=== PATIENT | male | born 1975 | race Caucasian/White ===

== ENCOUNTER → 2022-03-19 16:18 | Outpatient (BNVA) | payer MEDICARE, MEDICAID, SELFPAY | PROVIDERS: Family Provider Family Medicine; Visit Provider Registered Nurse Neonatal Intensive Care | DX: S49.91XA Unspecified injury of right shoulder and upper arm, initial encounter (principal); X58.XXXA Exposure to other specified factors, initial encounter | CPT/HCPCS: 73030 ==

== ENCOUNTER 2023-02-20 13:49 | Emergency (ER) | payer MEDICARE, MEDICAID, SELFPAY ==
[2023-02-20 14:07] VITALS: BP 143/90; PULSE 80; TEMP 36.8; O2SAT 95; BMI 41.5
[2023-02-20] MEDS: tetanus-dipt-pertussis 0.5 mL SDV IM (15:41)
--- NOTE | 2023-02-20 18:33 | ED_ITS ---
HPI - Extremity Problem General: Chief complaint: Extremity Problem,Nontraumatic Stated complaint: Right hand/finger swelling, deep splinter Time Seen by Provider: 02/20/23 14:13 Source: patient Mode of arrival: ambulatory Limitations: no limitations History of Present Illness: Patient presents to the emergency department today for evaluation treatment of a splinter underneath his right index finger nail. Patient states that just prior to arrival he was working outside and a splinter went underneath his right index finger nail. Patient states he tried to use toenail clippers to trim back the nail and pulled the splinter out however, he was unable to retrieve it. Patient states his last tetanus immunization was in 2011. Review of Systems General: Reports: 10 or more systems reviewed and unremarkable except in HPI and below Physical Exam Const: COMMON NORMALS: no acute distress, patient oriented x3 and alert HENMT: COMMON NORMALS: normocephalic, atraumatic and hearing grossly normal bilaterally HEAD & SCALP: normocephalic and atraumatic Eye: COMMON NORMALS: Equal, round and reactive pupils present, EOMs intact bilaterally and conjunctivae normal CONJUNCTIVA: Yes conjunctivae normal PUPIL: Yes Equal, round and reactive pupils present Neck/C-Spine: COMMON NORMALS: full ROM and no JVD Lymph: LYMPHATIC: no lymphadenopathy noted Resp: COMMON NORMALS: normal respiratory effort, No retractions and No use of accessory muscles Cardio: COMMON NORMALS: no JVD and regular rate RATE: regular rate Extremity: NARRATIVE EXTREMITY EXAM: Patient has an obvious foreign body under the right index finger nail. Patient has a dark linear object starting approximately mid nail and extending back towards the nail matrix. There is minimal erythema and, patient has the distal lateral corner of the fingernail trimmed back. No active bleeding. Patient still has preserved mobility of the joints in that finger. Neuro: COMMON NORMALS: patient oriented x3 SENSORIUM/ORIENTATION: Yes alert Psych: COMMON NORMALS: mental status grossly normal, Normal thought process present, cooperative and normal affect THOUGHT PROCESS: Normal thought proce ss present Skin: COMMON NORMALS: no rashes or lesions noted and turgor normal GENERAL SKIN EXAM: no rashes or lesions noted and turgor normal Procedures Foreign Body Removal Time Out Performed: no (Patient confirmed by patient demographics) Site: right and hand (Index finger) Description of foreign body: other (Splinter) Sedation/Analgesia: none (Patient was driving himself) Technique: manual removal and irrigation Confirmed by:: direct visualization Complications: none Post-procedure exam: awake, alert Neurovascular: no change from pre-procedure Course Vital Signs: Vital signs: Vital Signs Temperature 98.2 F 02/20/23 14:07 Pulse Rate 80 02/20/23 14:07 Blood Pressure 143/90 02/20/23 14:07 Pulse Oximetry 95 02/20/23 14:07 Oxygen Delivery Me thod Room Air 02/20/23 14:07 MDM - Extremity (Nontraumatic) Medical Decision Making Patient's tetanus immunization was updated today. Patient tolerated numbing underneath his fingernail and also tolerated some mild trimming back of the nail. Foreign body was able to be grasped and retracted intact. Patient tolerated irrigation and cleaning with Betadine and bandaging here in the ER. Explained to him that organic material is very porous and hold quite a bit of bacteria so, will put him on a prophylactic course of antibiotics. Patient was given strict return precautions for any acute concerns for development of infection. Patient is still at a great risk of infection given the location of the wound and somewhat difficulty to irrigate here in the ER. Patient was given wound care instructions and banding care instructions for at home but, should be seen and reevaluated for concerns of developing cellulitis. More specifically regarding the patient's procedure, patient received 1% lidocaine without epinephrine injected at the lateral portion of the nail matrix. Patient then tolerated insertion of the needle along the distal lateral portion of the right index finger nail and, was able to inject approximately 2 cc of lidocaine. Good anesthesia was achieved and nail was trimmed back, loosened with an 18-gauge needle from the nailbed and trimmed back with suture scissors. The end of the splinter was visualized and was able to be grasped using hemostats. I am appears to be intact upon removal. Total of approximately 1 cm in length. Minimal bleeding. Patient's wound was then cleaned with Betadine and sterile saline. It was bandaged using nonstick Telfa and Coban wrap. Patient tolerated procedure without any difficulty. Differential Diagnosis Likely cellulitis (Retained foreign body, need for tetanus immunization) Discharge Plan Discharge Patient Disposition: Home Clinical Impression: Foreign body of finger of right hand Condition: Stable Prescriptions: New cephalexin 500 mg capsule 500 mg PO Q6H 7 Days Qty: 28 0RF No Action budesonide-formoterol [Symbicort] 160-4.5 mcg/actuation HFA aerosol inhaler 2 inh inhalation BID albuterol sulfate [Ventolin HFA] 90 mcg/actuation HFA aerosol inhaler 2 puff inhalation QID PRN (Reason: Shortness Of Breath) ibuprofen 800 mg tablet 800 mg PO Q8H PRN (Reason: Pain) tramadol 50 mg tablet 50 mg PO .EVERY 4-6 HOURS MDD 3 tabs PRN (Reason: Pain) baclofen 20 mg tablet 20 mg PO Q8H PRN (Reason: Muscle Spasm) gabapentin 800 mg tablet 800 mg PO Q8H Discharge Orders: Discharge ED (Routine); Ordered 02/20/23 Ordered By: Malorie Aparicio Referrals: Aleksander Mendoza MD [Primary Care Provider] - Discharge Diet: Usual diet Discharge Activity: Increase activity as tolerated Patient Instructions: Soft Tissue Foreign Body (ED) Activity Restrictions/Additional Instructions: We recommend washing your wound at least twice a day with warm water and a mild soap. We also recommend keeping it covered with clean bandaging to prevent it getting wet and dirty throughout the day. We are starting you on prophylactic antibiotics as your risk of infection is quite high given the type of foreign body you had under your nail. We updated your tetanus shot today. If for any reason you notice sudden swelling of the finger, sudden redness, draining of a thick green or yellow material, red streak up your finger, or severe pain so bad that you cannot bend your finger you need to be seen and reevaluated. Coding Level of Care Code ED [employer] for Elena Eastman
== END 2023-02-20 16:37 | disposition home or self-care (01) ==
PROVIDERS: Emergency Provider Physician Assistant; PCP Family Medicine
DX: S60.450A Superficial foreign body of right index finger, initial encounter (principal); W45.8XXA Other foreign body or object entering through skin, initial encounter; Z23 Encounter for immunization
CPT/HCPCS: 90471; 90715; 99284

== ENCOUNTER → 2023-03-21 14:10 | Outpatient (BNVA) | payer MEDICARE, MEDICAID, SELFPAY | PROVIDERS: PCP Family Medicine; Visit Provider Thoracic Surgery (Cardiothoracic Vascular Surgery) | DX: S80.821D Blister (nonthermal), right lower leg, subsequent encounter (principal); X58.XXXD Exposure to other specified factors, subsequent encounter; L03.115 Cellulitis of right lower limb | CPT/HCPCS: 97597; 97598; 99213 ==

== ENCOUNTER → 2023-03-28 15:44 | Outpatient (BNVA) | payer MEDICARE, MEDICAID, SELFPAY | PROVIDERS: PCP Family Medicine; Visit Provider Thoracic Surgery (Cardiothoracic Vascular Surgery) | DX: S80.821D Blister (nonthermal), right lower leg, subsequent encounter (principal); X58.XXXD Exposure to other specified factors, subsequent encounter; L03.115 Cellulitis of right lower limb | CPT/HCPCS: 97597; A6021 ==

== ENCOUNTER → 2023-04-04 14:09 | Outpatient (BNVA) | payer MEDICARE, MEDICAID, SELFPAY | PROVIDERS: PCP Family Medicine; Visit Provider Thoracic Surgery (Cardiothoracic Vascular Surgery) | DX: I96 Gangrene, not elsewhere classified (principal); L97.812 Non-pressure chronic ulcer of other part of right lower leg with fat layer exposed; L03.115 Cellulitis of right lower limb | CPT/HCPCS: 97597 ==

== ENCOUNTER → 2023-04-11 14:17 | Outpatient (BNVA) | payer MEDICARE, MEDICAID, SELFPAY | PROVIDERS: PCP Family Medicine; Visit Provider Thoracic Surgery (Cardiothoracic Vascular Surgery) | DX: I96 Gangrene, not elsewhere classified (principal); L97.812 Non-pressure chronic ulcer of other part of right lower leg with fat layer exposed; L03.115 Cellulitis of right lower limb | CPT/HCPCS: 97597; A6021 ==

== ENCOUNTER → 2023-04-18 13:01 | Outpatient (BNVA) | payer MEDICARE, MEDICAID, SELFPAY | PROVIDERS: PCP Family Medicine; Visit Provider Thoracic Surgery (Cardiothoracic Vascular Surgery) | DX: I96 Gangrene, not elsewhere classified (principal); L97.812 Non-pressure chronic ulcer of other part of right lower leg with fat layer exposed; L03.115 Cellulitis of right lower limb | CPT/HCPCS: 97597; A6021; A6212 ==

== ENCOUNTER → 2023-04-25 14:42 | Outpatient (BNVA) | payer MEDICARE, MEDICAID, SELFPAY | PROVIDERS: PCP Family Medicine; Visit Provider Thoracic Surgery (Cardiothoracic Vascular Surgery) | DX: I96 Gangrene, not elsewhere classified (principal); L97.812 Non-pressure chronic ulcer of other part of right lower leg with fat layer exposed; L03.115 Cellulitis of right lower limb | CPT/HCPCS: 97597; A6021 ==

== ENCOUNTER → 2023-05-02 13:54 | Outpatient (BNVA) | payer MEDICARE, MEDICAID, SELFPAY | PROVIDERS: PCP Family Medicine; Visit Provider Thoracic Surgery (Cardiothoracic Vascular Surgery) | DX: I96 Gangrene, not elsewhere classified (principal); L97.812 Non-pressure chronic ulcer of other part of right lower leg with fat layer exposed; L03.115 Cellulitis of right lower limb | CPT/HCPCS: 97597 ==

== ENCOUNTER → 2023-05-09 14:51 | Outpatient (BNVA) | payer MEDICARE, MEDICAID, SELFPAY | PROVIDERS: PCP Family Medicine; Visit Provider Thoracic Surgery (Cardiothoracic Vascular Surgery) | DX: Z09 Encounter for follow-up examination after completed treatment for conditions other than malignant neoplasm (principal) | CPT/HCPCS: 99212 ==

== ENCOUNTER 2023-09-09 06:00 | Outpatient (RCR) | payer MEDICARE, MEDICAID, SELFPAY | END 2023-10-09 23:59 | disposition home or self-care (01) | LOC: SPT 06:00 | PROVIDERS: Visit Provider Neurological Surgery | DX: M53.3 Sacrococcygeal disorders, not elsewhere classified (principal) | CPT/HCPCS: 97110; 97140; 97161 ==

== ENCOUNTER 2023-10-10 06:00 | Outpatient (RCR) | payer MEDICARE, MEDICAID, SELFPAY | END 2023-11-09 23:59 | disposition home or self-care (01) | LOC: SPT 06:00 | PROVIDERS: Visit Provider Neurological Surgery | DX: M53.3 Sacrococcygeal disorders, not elsewhere classified (principal) | CPT/HCPCS: 97110 ==

== ENCOUNTER 2023-11-10 06:00 | Outpatient (RCR) | payer MEDICARE, MEDICAID, SELFPAY | END 2023-12-08 23:59 | disposition home or self-care (01) | LOC: SPT 06:00 | PROVIDERS: Visit Provider Neurological Surgery | DX: M53.3 Sacrococcygeal disorders, not elsewhere classified (principal) | CPT/HCPCS: 97110; G0283 ==

== ENCOUNTER 2024-03-20 06:00 | Outpatient (RCR) | payer MEDICARE, MEDICAID, SELFPAY | END 2024-04-08 23:59 | disposition home or self-care (01) | LOC: SPT 06:00 | PROVIDERS: Visit Provider Nurse Practitioner Family | DX: M25.511 Pain in right shoulder (principal) | CPT/HCPCS: 97110; 97161 ==

== ENCOUNTER 2024-04-09 06:00 | Outpatient (RCR) | payer MEDICARE, MEDICAID, SELFPAY | END 2024-05-01 23:59 | disposition home or self-care (01) | LOC: SPT 06:00 | PROVIDERS: Visit Provider Nurse Practitioner Family | DX: M25.511 Pain in right shoulder (principal) | CPT/HCPCS: 97110 ==

== ENCOUNTER 2024-11-05 16:25 | Emergency (ER) | payer MEDICARE, MEDICAID, SELFPAY ==
[2024-11-05 16:39] VITALS: BP 161/82; PULSE 71; RESP 17; TEMP 36.8; O2SAT 95; BMI 39.9
--- NOTE | 2024-11-05 17:07 | W.ED.SKABFB ---
HPI - Skin/Abscess/Foreign Bdy General: Chief complaint: Skin/Abscess/Foreign Body Stated complaint: Left side spot Time Seen by Provider: 11/05/24 16:50 Source: patient Mode of arrival: ambulatory Limitations: no limitations History of Present Illness: Patient is a 49-year-old male who presents the emergency department complaining of rash to left upper quadrant abdomen/flank region. States that this is popped up over the past couple days, he thought it was a spider bite so he has been apply mupirocin. States that he was seen in urgent care a week or so ago, for pain to his left back region that radiated around the left flank and left abdomen, this has since gone away and now this rash is popped up. Denies ever having shingles. No fevers reported, no nausea/vomiting/diarrhea, no other symptoms. MD complaint: rash Onset (ago): day(s) Tetanus up to date: yes Severity: moderate Quality: pruritic Pain Consistency: constant Relieving factors: none Context: other (Recent back pain and pain over the area where there is a rash) Associated symptoms: Deny chills, fever(s), nausea or vomiting Treatments prior to arrival: other (Topical mupirocin) Related Data Home Medications Medication Instructions Recorded Confirmed albuterol sulfate 90 mcg/actuation 2 puff inhalation QID PRN 03/19/22 03/29/24 aerosol inhaler (Ventolin HFA) Shortness Of Breath ibuprofen 800 mg tablet 800 mg PO Q8H PRN Pain 02/20/23 03/29/24 tramadol 50 mg tablet 50 mg PO .EVERY 4-6 HOURS PRN Pain 02/20/23 03/29/24 pregabalin 25 mg capsule (Lyrica) 25 mg PO DAILY 10/20/24 10/20/24 Previous Rx's Medication Instructions Recorded prednisone 20 mg tablet 40 mg (2 x 20 mg) PO DAILY 5 days 10/20/24 #10 tabs tizanidine 2 mg tablet 2 mg PO BID PRN muscle spasticity 10/20/24 #20 tabs prednisone 20 mg tablet 60 mg (3 x 20 mg) PO ONCE 5 days 11/05/24 #15 tabs valacyclovir 1 gram tablet 1,000 mg PO TID 7 days #21 tabs 11/05/24 Allergies Allergy/AdvReac Type Severity Reaction Status Date / Time bacitracin Allergy states Verified 10/20/24 16:02 eats his skin off Review of Systems General: Reports: 10 or more systems reviewed and unremarkable except in HPI and below Const: Denies: fever(s) or chills Card: Denies: chest pain Resp: Denies: dyspnea GI: Denies: abdominal pain, nausea, vomiting or diarrhea Musc: Denies: extremity pain or joint pain Skin/Breast: Reports: rash and pruritus; Denies: skin pain, skin tenderness or new lesions Neuro: Denies: headache(s) PFSH ED PFSH: Medical History Thoracic back pain Social History Smoking and tobacco/nicotine status: never used tobacco/nicotine Physical Exam Const: COMMON NORMALS: no acute distress, average body habitus, patient oriented x3, no limitations, healthy appearing, alert and well nourished HENMT: COMMON NORMALS: normocephalic and atraumatic HEAD & SCALP: normocephalic and atraumatic Neck/C-Spine: COMMON NORMALS: full ROM, no lymphadenopathy, supple and no meningeal signs Resp: COMMON NORMALS: normal respiratory effort, No use of accessory muscles and clear to auscultation bilaterally AUSCULTATION: clear to auscultation bilaterally Cardio: COMMON NORMALS: regular rate and regular rhythm RATE: regular rate RHYTHM: regular rhythm Extremity: COMMON NORMALS: full ROM and capillary refill normal Neuro: COMMON NORMALS: patient oriented x3 SENSORIUM/ORIENTATION: Yes alert MENINGEAL SIGNS: Yes no meningeal signs Skin: COMMON NORMALS: no wounds and turgor normal NARRATIVE SKIN EXAM: Scabbed blisters to left upper quadrant on an erythematous base, there is another area of erythema just superior to this. No significant pain at this time, is pruritic GENERAL SKIN EXAM: turgor normal Course Vital Signs: Vital signs: Vital Signs Temperature 98.3 F 11/05/24 16:39 Pulse Rate 89 11/05/24 17:18 Respiratory Rate 17 11/05/24 16:39 Blood Pressure 160/92 11/05/24 17:18 Pulse Oximetry 94 11/05/24 17:18 Oxygen Delivery Me thod Room Air 11/05/24 16:39 MDM - Skin/Abscess/Foreign Bdy Medicial Decision Making Patient presenting with clinical signs and symptoms of potential shingles rash. There was pain reported along the same dermatome previous to rash onset, he is not getting any relief from topical mupirocin. With the clinical appearance, we will go ahead and treat with Valtrex and prednisone. Encouraged him to follow-up closely with primary care to make sure that his rash does not significantly change, I did inform him that the pain will most likely increase and general return precautions were given. Patient endorsed understanding. No radiology studies performed this visit Discharge Plan Discharge Patient Disposition: Home Clinical Impression: Shingles Condition: Stable Prescriptions: New valacyclovir 1 gram tablet 1,000 mg PO TID 7 Days Qty: 21 0RF prednisone 20 mg tablet 60 mg PO ONCE 5 Days Qty: 15 0RF No Action albuterol sulfate [Ventolin HFA] 90 mcg/actuation HFA aerosol inhaler 2 puff inhalation QID PRN (Reason: Shortness Of Breath) bupivacaine (PF) 0.5 % (5 mg/mL) solution 5 mg Infiltration ONCE Qty: 1 0RF lidocaine (PF) 10 mg/mL (1 %) solution 10 mg SUBCUT ONCE Qty: 1 0RF pregabalin [Lyrica] 25 mg capsule 25 mg PO DAILY tizanidine 2 mg tablet 2 mg PO BID PRN (Reason: muscle spasticity) Qty: 20 0RF Rx Instructions: may take 2 to 3 times daily. prednisone 20 mg tablet 40 mg PO DAILY 5 Days Qty: 10 0RF ibuprofen 800 mg tablet 800 mg PO Q8H PRN (Reason: Pain) tramadol 50 mg tablet 50 mg PO .EVERY 4-6 HOURS MDD 3 tabs PRN (Reason: Pain) Discharge Orders: Discharge ED (Routine); Ordered 11/05/24 Ordered By: Vijay Nieto Patient Instructions: Shingles (ED) Activity Restrictions/Additional Instructions: Please see attached patient instructions for further education. Take valacyclovir as prescribed. Take steroids as prescribed. Please return with any new or concerning. Follow-up with primary care. Coding Level of Care Code ED [employer] for Elena Eastman
[2024-11-05 17:18] VITALS: BP 160/92; PULSE 89; O2SAT 94
== END 2024-11-05 17:20 | disposition home or self-care (01) ==
PROVIDERS: Emergency Provider Physician Assistant
DX: B02.9 Zoster without complications (principal)
CPT/HCPCS: 99283

== ENCOUNTER → 2024-12-24 13:01 | Outpatient (BNVA) | payer MEDICARE, MEDICAID, SELFPAY | PROVIDERS: Visit Provider Thoracic Surgery (Cardiothoracic Vascular Surgery) | DX: I96 Gangrene, not elsewhere classified (principal); L97.811 Non-pressure chronic ulcer of other part of right lower leg limited to breakdown of skin | CPT/HCPCS: 97597; 97598; 99203; A6021 ==

== ENCOUNTER → 2024-12-31 13:20 | Outpatient (BNVA) | payer MEDICARE, MEDICAID, SELFPAY | PROVIDERS: Visit Provider Thoracic Surgery (Cardiothoracic Vascular Surgery) | DX: I96 Gangrene, not elsewhere classified (principal); L97.811 Non-pressure chronic ulcer of other part of right lower leg limited to breakdown of skin | CPT/HCPCS: 97597; 97598; A6210 ==

== ENCOUNTER → 2025-01-07 13:20 | Outpatient (BNVA) | payer MEDICARE, MEDICAID, SELFPAY | PROVIDERS: Visit Provider Thoracic Surgery (Cardiothoracic Vascular Surgery) | DX: I96 Gangrene, not elsewhere classified (principal); L97.811 Non-pressure chronic ulcer of other part of right lower leg limited to breakdown of skin | CPT/HCPCS: 97597; 97598; A6210 ==

== ENCOUNTER → 2025-01-14 13:42 | Outpatient (BNVA) | payer MEDICARE, MEDICAID, SELFPAY | PROVIDERS: Visit Provider Thoracic Surgery (Cardiothoracic Vascular Surgery) | DX: I96 Gangrene, not elsewhere classified (principal); I87.2 Venous insufficiency (chronic) (peripheral); L97.811 Non-pressure chronic ulcer of other part of right lower leg limited to breakdown of skin | CPT/HCPCS: 97597; 97598; A6210 ==

== ENCOUNTER → 2025-01-21 13:27 | Outpatient (BNVA) | payer MEDICARE, MEDICAID, SELFPAY | DX: I96 Gangrene, not elsewhere classified (principal); I87.2 Venous insufficiency (chronic) (peripheral); L97.811 Non-pressure chronic ulcer of other part of right lower leg limited to breakdown of skin | CPT/HCPCS: 97597; A6210 ==

== ENCOUNTER → 2025-01-28 13:50 | Outpatient (BNVA) | payer MEDICARE, MEDICAID, SELFPAY | PROVIDERS: Visit Provider Thoracic Surgery (Cardiothoracic Vascular Surgery) | DX: I96 Gangrene, not elsewhere classified (principal); I87.2 Venous insufficiency (chronic) (peripheral); L97.811 Non-pressure chronic ulcer of other part of right lower leg limited to breakdown of skin | CPT/HCPCS: 97597; 97598; A6210 ==

== ENCOUNTER → 2025-02-04 14:12 | Outpatient (BNVA) | payer MEDICARE, MEDICAID, SELFPAY | PROVIDERS: Visit Provider Thoracic Surgery (Cardiothoracic Vascular Surgery) | DX: I96 Gangrene, not elsewhere classified (principal); I87.2 Venous insufficiency (chronic) (peripheral); L97.811 Non-pressure chronic ulcer of other part of right lower leg limited to breakdown of skin | CPT/HCPCS: 97597; A6210; A6248 ==

== ENCOUNTER → 2025-02-11 13:50 | Outpatient (BNVA) | payer MEDICARE, MEDICAID, SELFPAY | PROVIDERS: Visit Provider Thoracic Surgery (Cardiothoracic Vascular Surgery) | DX: I96 Gangrene, not elsewhere classified (principal); I87.2 Venous insufficiency (chronic) (peripheral); L97.811 Non-pressure chronic ulcer of other part of right lower leg limited to breakdown of skin | CPT/HCPCS: 97597; A6210 ==

== ENCOUNTER → 2025-02-18 13:27 | Outpatient (BNVA) | payer MEDICARE, MEDICAID, SELFPAY | PROVIDERS: Visit Provider Thoracic Surgery (Cardiothoracic Vascular Surgery) | DX: I96 Gangrene, not elsewhere classified (principal); I87.2 Venous insufficiency (chronic) (peripheral); L97.811 Non-pressure chronic ulcer of other part of right lower leg limited to breakdown of skin | CPT/HCPCS: 97597 ==

== ENCOUNTER → 2025-02-25 13:19 | Outpatient (BNVA) | payer MEDICARE, MEDICAID, SELFPAY | PROVIDERS: Visit Provider Thoracic Surgery (Cardiothoracic Vascular Surgery) | DX: I96 Gangrene, not elsewhere classified (principal); I87.2 Venous insufficiency (chronic) (peripheral); L97.811 Non-pressure chronic ulcer of other part of right lower leg limited to breakdown of skin | CPT/HCPCS: 97597; A6210 ==

== ENCOUNTER → 2025-03-05 14:12 | Outpatient (BNVA) | payer MEDICARE, MEDICAID, SELFPAY | PROVIDERS: Visit Provider Thoracic Surgery (Cardiothoracic Vascular Surgery) | DX: I96 Gangrene, not elsewhere classified (principal); I87.2 Venous insufficiency (chronic) (peripheral); L97.811 Non-pressure chronic ulcer of other part of right lower leg limited to breakdown of skin | CPT/HCPCS: 97597; A6210 ==

== ENCOUNTER → 2025-03-12 14:16 | Outpatient (BNVA) | payer MEDICARE, MEDICAID, SELFPAY | PROVIDERS: Visit Provider Thoracic Surgery (Cardiothoracic Vascular Surgery) | DX: I96 Gangrene, not elsewhere classified (principal); I87.2 Venous insufficiency (chronic) (peripheral); L97.811 Non-pressure chronic ulcer of other part of right lower leg limited to breakdown of skin | CPT/HCPCS: 97597; A6210 ==

== ENCOUNTER → 2025-03-19 10:54 | Outpatient (BNVA) | payer MEDICARE, MEDICAID, SELFPAY | PROVIDERS: Visit Provider Thoracic Surgery (Cardiothoracic Vascular Surgery) | DX: I96 Gangrene, not elsewhere classified (principal); I87.2 Venous insufficiency (chronic) (peripheral); L97.811 Non-pressure chronic ulcer of other part of right lower leg limited to breakdown of skin | CPT/HCPCS: 97597 ==

== ENCOUNTER → 2025-05-16 14:23 | Outpatient (BNVA) | payer MEDICARE, MEDICAID, SELFPAY | PROVIDERS: Visit Provider Thoracic Surgery (Cardiothoracic Vascular Surgery) | DX: I96 Gangrene, not elsewhere classified (principal); L97.811 Non-pressure chronic ulcer of other part of right lower leg limited to breakdown of skin; L03.115 Cellulitis of right lower limb | CPT/HCPCS: 97597; 99213; A6021 ==

== ENCOUNTER → 2025-05-23 10:51 | Outpatient (BNVA) | payer MEDICARE, MEDICAID, SELFPAY | PROVIDERS: PCP Family Medicine; Visit Provider Thoracic Surgery (Cardiothoracic Vascular Surgery) | DX: I96 Gangrene, not elsewhere classified (principal); L97.811 Non-pressure chronic ulcer of other part of right lower leg limited to breakdown of skin; L03.115 Cellulitis of right lower limb | CPT/HCPCS: 97597; A6021 ==

== ENCOUNTER → 2025-05-30 13:52 | Outpatient (BNVA) | payer MEDICARE, MEDICAID, SELFPAY | PROVIDERS: PCP Family Medicine; Visit Provider Thoracic Surgery (Cardiothoracic Vascular Surgery) | DX: I96 Gangrene, not elsewhere classified (principal); L97.811 Non-pressure chronic ulcer of other part of right lower leg limited to breakdown of skin; L03.115 Cellulitis of right lower limb | CPT/HCPCS: 97597; A6021 ==

== ENCOUNTER → 2025-06-06 13:04 | Outpatient (BNVA) | payer MEDICARE, MEDICAID, SELFPAY | PROVIDERS: PCP Family Medicine; Visit Provider Thoracic Surgery (Cardiothoracic Vascular Surgery) | DX: I96 Gangrene, not elsewhere classified (principal); L97.811 Non-pressure chronic ulcer of other part of right lower leg limited to breakdown of skin; L03.115 Cellulitis of right lower limb | CPT/HCPCS: 97597; A6021 ==

== ENCOUNTER → 2025-06-13 13:26 | Outpatient (BNVA) | payer MEDICARE, MEDICAID, SELFPAY | PROVIDERS: PCP Family Medicine; Visit Provider Thoracic Surgery (Cardiothoracic Vascular Surgery) | DX: I96 Gangrene, not elsewhere classified (principal); L97.811 Non-pressure chronic ulcer of other part of right lower leg limited to breakdown of skin; L03.115 Cellulitis of right lower limb | CPT/HCPCS: 97597 ==

== ENCOUNTER → 2025-06-20 13:41 | Outpatient (BNVA) | payer MEDICARE, MEDICAID, SELFPAY | PROVIDERS: PCP Family Medicine; Visit Provider Thoracic Surgery (Cardiothoracic Vascular Surgery) | DX: I96 Gangrene, not elsewhere classified (principal); L97.811 Non-pressure chronic ulcer of other part of right lower leg limited to breakdown of skin; L03.115 Cellulitis of right lower limb | CPT/HCPCS: 97597; A6021 ==

== ENCOUNTER → 2025-06-27 13:31 | Outpatient (BNVA) | payer MEDICARE, MEDICAID, SELFPAY | PROVIDERS: PCP Family Medicine; Visit Provider Thoracic Surgery (Cardiothoracic Vascular Surgery) | DX: I96 Gangrene, not elsewhere classified (principal); L97.811 Non-pressure chronic ulcer of other part of right lower leg limited to breakdown of skin; L03.115 Cellulitis of right lower limb | CPT/HCPCS: 97597; A6021 ==

== ENCOUNTER → 2025-07-04 13:41 | Outpatient (BNVA) | payer MEDICARE, MEDICAID, SELFPAY | PROVIDERS: PCP Family Medicine; Visit Provider Thoracic Surgery (Cardiothoracic Vascular Surgery) | DX: I96 Gangrene, not elsewhere classified (principal); L97.811 Non-pressure chronic ulcer of other part of right lower leg limited to breakdown of skin; L03.115 Cellulitis of right lower limb | CPT/HCPCS: 97597; A6021; A6212 ×2 ==

== ENCOUNTER → 2025-07-11 13:32 | Outpatient (BNVA) | payer MEDICARE, MEDICAID, SELFPAY | PROVIDERS: PCP Family Medicine; Visit Provider Thoracic Surgery (Cardiothoracic Vascular Surgery) | DX: L97.811 Non-pressure chronic ulcer of other part of right lower leg limited to breakdown of skin (principal); L03.115 Cellulitis of right lower limb; Z09 Encounter for follow-up examination after completed treatment for conditions other than malignant neoplasm | CPT/HCPCS: 97597; A6021 ==

== ENCOUNTER → 2025-07-18 13:27 | Outpatient (BNVA) | payer MEDICARE, MEDICAID, SELFPAY | PROVIDERS: PCP Family Medicine; Visit Provider Thoracic Surgery (Cardiothoracic Vascular Surgery) | DX: L97.811 Non-pressure chronic ulcer of other part of right lower leg limited to breakdown of skin (principal); L03.115 Cellulitis of right lower limb | CPT/HCPCS: 97597; A6021 ==

== ENCOUNTER → 2025-07-31 11:00 | Outpatient (BNVA) | payer MEDICARE, MEDICAID, SELFPAY | PROVIDERS: PCP Family Medicine; Visit Provider Thoracic Surgery (Cardiothoracic Vascular Surgery) | DX: L97.811 Non-pressure chronic ulcer of other part of right lower leg limited to breakdown of skin (principal); L03.115 Cellulitis of right lower limb; E55.9 Vitamin D deficiency, unspecified; Z00.00 Encounter for general adult medical examination without abnormal findings; Z51.81 Encounter for therapeutic drug level monitoring; R73.09 Other abnormal glucose; Z13.6 Encounter for screening for cardiovascular disorders; R53.81 Other malaise; R53.83 Other fatigue; E53.8 Deficiency of other specified B group vitamins | CPT/HCPCS: 80053; 80061; 82306; 82607; 83036; 83721; 84443; 85025; 97597; A6212 ==

== ENCOUNTER → 2025-08-08 13:01 | Outpatient (BNVA) | payer MEDICARE, MEDICAID, SELFPAY | PROVIDERS: PCP Family Medicine; Visit Provider Thoracic Surgery (Cardiothoracic Vascular Surgery) | DX: I96 Gangrene, not elsewhere classified (principal); L97.811 Non-pressure chronic ulcer of other part of right lower leg limited to breakdown of skin; Z09 Encounter for follow-up examination after completed treatment for conditions other than malignant neoplasm | CPT/HCPCS: 97597; A6212 ==

== ENCOUNTER → 2025-08-15 13:45 | Outpatient (BNVA) | payer MEDICARE, MEDICAID, SELFPAY | PROVIDERS: PCP Family Medicine; Visit Provider Thoracic Surgery (Cardiothoracic Vascular Surgery) | DX: I96 Gangrene, not elsewhere classified (principal); L97.811 Non-pressure chronic ulcer of other part of right lower leg limited to breakdown of skin | CPT/HCPCS: 97597; A6212 ==

== ENCOUNTER → 2025-08-29 12:55 | Outpatient (BNVA) | payer MEDICARE, MEDICAID, SELFPAY | PROVIDERS: PCP Family Medicine; Visit Provider Thoracic Surgery (Cardiothoracic Vascular Surgery) | DX: I96 Gangrene, not elsewhere classified (principal); L97.811 Non-pressure chronic ulcer of other part of right lower leg limited to breakdown of skin | CPT/HCPCS: 99212; A6212 ×2 ==